=== PATIENT | female | born 1965 ===

== ENCOUNTER 2018-04-16 16:13 | Emergency (ER) | payer OTHER ==
--- NOTE | 2018-04-16 16:30 | ED PDOC ---
Arrival/HPI - General Time Seen by Provider: 04/16/18 16:15 Historian: Patient - History of Present Illness Narrative History of Present Illness (Text): 04/16/18 16:50 A 52 year old female, whose past medical history includes arthritis (ambulates with cane), presents to the emergency department complaining of nausea starting yesterday morning. Patient reports feeling a sensation of vomiting traveling up and down chest, however is unable to vomit. States her family members have similar symptoms as well. She notes only drinking Coca-Cola and eating crackers since yesterday. Patient mentions yesterday experienced burning abdominal pain, however does not have this issue today. Patient denies any fever, diarrhea, or any other complaints at this time. No PMD Time/Duration: 24 hours (yesterday morning) Past Medical History - Provider Review Nursing Documentation Reviewed: Yes - Cardiac Hx Cardiac Disorders: Yes Hx Cardiac Arrhythmia: Yes (TACHYCARDIA) - Pulmonary Hx Respiratory Disorders: No - Neurological Hx Neurological Disorder: No - HEENT Hx HEENT Disorder: No - Renal Hx Renal Disorder: No - Endocrine/Metabolic Hx Endocrine Disorders: No - Hematological/Oncological Hx Blood Disorders: Yes Hx Anemia: Yes - Integumentary Hx Dermatological Disorder: No - Musculoskeletal/Rheumatological Hx Musculoskeletal Disorders: Yes Hx Osteoarthritis: Yes (GENERALIZED) - Gastrointestinal Hx Gastrointestinal Disorders: No - Genitourinary/Gynecological Hx Genitourinary Disorders: No - Psychiatric Hx Psychophysiologic Disorder: Yes Hx Anxiety: Yes Hx Depression: Yes - Surgical History Hx Tubal Ligation: Yes - Anesthesia Hx Anesthesia: Yes Hx Anesthesia Reactions: No Hx Malignant Hyperthermia: No Family/Social History - Physician Review Nursing Documentation Reviewed: Yes Family/Social History: No Known Family HX Smoking Status: Never Smoked Allergies/Home Meds Allergies/Adverse Reactions: Allergies No Known Allergies Allergy (Verified 07/26/14 07:45) Home Medications: Home Meds Medication Instructions Recorded Confirmed Amoxicillin 500 mg PO DAILY 07/26/14 07/26/14 Clonazepam 0.5 mg PO HS 07/26/14 07/26/14 Ibuprofen 600 mg PO PRN PRN 07/26/14 07/26/14 Meloxicam 15 mg PO DAILY 07/26/14 07/26/14 Mesalamine [Canasa] 1,000 mg RC DAILY 07/26/14 07/26/14 Naproxen 500 mg PO BID 07/26/14 07/26/14 Propranolol [Inderal] 20 mg PO TID 07/26/14 07/26/14 Simvastatin 40 mg PO HS 07/26/14 07/26/14 Tramadol Hydrochloride [Tramadol 50 mg PO PRN PRN 07/26/14 07/26/14 HCl] Review of Systems - Physician Review All systems were reviewed & negative as marked: Yes - Review of Systems Constitutional: absent: Fevers Gastrointestinal: Nausea. absent: Abdominal Pain (had burning abdominal pain yesterday, not today), Diarrhea, Vomiting Physical Exam - Physical Exam Narrative Physical Exam (Text): Gen: VS reviewed, alert, well developed, well nourished, nontoxic, mild distress. ENT: normal pharynx. Eye: EOMI, PERRL. Neck: no JVD, supple, no adenopathy. CV: regular rate, regular rhythm, no rubs, no murmur, no gallops, S1, S2, pulses equal and strong. Pulm: no distress, clear to auscultation, no wheeze, no rhonchi, breath sounds equal, no rales. Abd: soft, nontender, no guarding, no rebound, no rigidity, normal bowel sounds. Ext: no edema. Skin: good color, no rash, no cyanosis. Psych: responds appropriately to questions, normal affect. Neuro: oriented x 3, CN2-12 intact grossly, motor intact, sensation intact. Vital Signs Reviewed: Yes Temperature: Afebrile Blood Pressure: Normal Pulse: Regular Respiratory Rate: Normal Appearance: Positive for: Well-Appearing, Non-Toxic, Comfortable Pain Distress: None Mental Status: Positive for: Alert and Oriented X 3 Medical Decision Making ED Course and Treatment: 04/16/18 16:46 benign presentation with acute nausea, no persistent vomiting, no diarrhea, no abdominal pain at this time. will check ekg to rule out atypical chest pain. will give antiemetic and discharge. there are multiple sick contacts at home with GI complaints. - EKG Interpretation EKG Interpretation (Text): 04/16/18 16:58 1659: nsr at 74 bpm, nml qrs, nml axis, no acute sttw abn Interpreted by ED Physician: Yes - Scribe Statement The provider has reviewed the documentation as recorded by the Bronwyn Becerra Provider Scribe Attestation: All medical record entries made by the Scribe were at my direction and personally dictated by me. I have reviewed the chart and agree that the record accurately reflects my personal performance of the history, physical exam, medical decision making, and the department course for this patient. I have also personally directed, reviewed, and agree with the discharge instructions and disposition. Disposition/Present on Arrival - Present on Arrival Any Indicators Present on Arrival: No - Disposition Have Diagnosis and Disposition been Completed?: Yes Diagnosis: Vomiting Disposition: HOME/ ROUTINE Disposition Time: 16:48 Patient Plan: Discharge Patient Problems: Current Active Problems Problem Status Onset Vomiting Acute Condition: STABLE Discharge Instructions (ExitCare): Nausea and Vomiting, Adult (DC) Additional Instructions: Return for any new or worsening symptoms especially chest pain, fever greater than 100.4, bloody stools. SONIA HERRMANN, thank you for letting us take care of you today. Your provider was Dr. Henri Barrett and you were treated for nausea. The emergency medical care you received today was directed at your acute symptoms. If you were prescribed any medication, please fill it and take as directed. It may take several days for your symptoms to resolve. Return to the Emergency Department if your symptoms worsen, do not improve, or if you have any other problems. Please contact your doctor or call one of the physicians/clinics you have been referred to that are listed on the Patient Visit Information form that is included in your discharge packet. Bring any paperwork you were given at discharge with you along with any medications you are taking to your follow up visit. Our treatment cannot replace ongoing medical care by a primary care provider outside of the emergency department. Thank you for allowing the [facility] team to be part of your care today. If you had an X-Ray or CT scan: A Radiologist will review the ED reading if any change in treatment is needed we will contact you. If you had a blood, urine, or wound culture: It will take several days for the results, if any change in treatment is needed we will contact you. If you had an STI test: It will take 48 hours for the results. Please call after 1 week if you have not heard back. Prescriptions: Ondansetron ODT [Zofran ODT] 4 mg PO TID #15 odt
[2018-04-16 16:40] VITALS: BMI 37.4
[2018-04-16 17:26] VITALS: BP 134/87; PULSE 75; RESP 18; TEMP 98.2; O2SAT 99
--- NOTE | 2018-04-17 22:26 | CARD ---
APPROVED REPORT Date of service: 04/16/2018 EKG Measurement Heart [id number] <Conclusion> Normal sinus rhythm Normal ECG
== END 2018-04-16 17:19 | disposition home or self-care (01) ==
LOC: ED 16:13
DX: R11.10 Vomiting, unspecified (principal)